=== PATIENT | female | born 1970 | race Caucasian/White ===

== ENCOUNTER 2024-08-24 07:07 | Day surgery (SDC) | payer OTHER ==
[~2024-08-24] VITALS: Ht 167.6 cm; Wt 122.5 kg
[2024-08-24] VITALS (12 sets, daily range): BP systolic 116; BP diastolic 61; PULSE 64–85; RESP 11–20; O2SAT 97–100
[~2024-08-24 07:07] MED LIST: ALBU18; ASPI81CH59 PO; ATOR10TA PO; CHOL20007 OR; DICY10CA GT; HYDR-4072 PO; HYDR12.59 PO; NAPR-957 PO; TIRZ7.5I SC; TIZA6CAP10 PO; VALS40TA2 PO; ZOFR4T PO
[2024-08-24] MEDS ORDERED: ceFAZolin 2 GM/D5W50ml 50 ML IV ONE (07:32)
[2024-08-24] MEDS ORDERED: LIDOCAINE 2% (LOCAL ANESTH.) PF 5ml SDV ONE (07:55)
[2024-08-24] MEDS ORDERED: fentaNYL CITRATE 100 MCG/2 ML VL ONE (07:55)
[2024-08-24] MEDS ORDERED: METOCLOPRAMIDE HCL 5MG/ml INJ 2ml VIAL ONE (07:55)
[2024-08-24] MEDS ORDERED: ONDANSETRON HCL 4 MG/2 ML VIAL ONE (07:55)
[2024-08-24] MEDS ORDERED: PROPOFOL 10 MG/ML 20 ML IV ONE (07:55)
[2024-08-24] MEDS ORDERED: MIDAZOLAM HCL 2MG/2ML 2ml VIAL (1mg/ml) ONE (07:55)
[2024-08-24] MEDS: BUPIVACAINE HCL 0.25% P/F 10 ML VIAL ONE (08:14)
[2024-08-24] MEDS ORDERED: ePHEDrine SULFATE 50 MG/ML AMP ONE (08:28)
[2024-08-24] MEDS ORDERED: ALBUTEROL SULFATE 90 MCG MDI IN ONE (08:43)
[2024-08-24] MEDS ORDERED: MIDAZOLAM HCL 2MG/2ML 2ml VIAL (1mg/ml) IV PRN (08:45)
[2024-08-24] MEDS ORDERED: ONDANSETRON HCL 4 MG/2 ML VIAL IV ONE (08:45)
[2024-08-24] MEDS ORDERED: HYDROmorphone HCL 2 MG/ML VL/or syr IV PRN (08:45)
[2024-08-24] MEDS: ALBUTEROL SULF 2.5 MG/0.5ML(0.5%) NEB SOLN ONE (08:56)
[2024-08-24] MEDS: IPRATROPIUM BROM 0.5 MG/2.5ML INH SOL ONE (08:56)
[2024-08-24] MEDS: EPINEPHrine HCL 0.5 ML NEB ONE (09:02)
[2024-08-24] MEDS: EPINEPHrine HCL 0.5 ML NEB NEB ONE (09:15)
[2024-08-24] MEDS: FAMOTIDINE (10MG/ML) 2ML VL IV ONE ×2 (09:39)
[2024-08-24] MEDS: KETOROLAC TROMETH 30 MG/ML 1ML VIAL IV ONE (09:57)
--- NOTE | 2024-08-24 10:33 | DVHOP2 ---
Operative Report - 2 Report Details Date: 08/24/24 Preop Diagnosis: Left carpal tunnel syndrome Postop Diagnosis: Left carpal tunnel syndrome Surgeon: Veronika Bui MD Anesthesiologist: Carlos rodriguez CRNA Anesthesia: Mac, Local Implant: None Consent: The patient was informed of the risks and benefits of the procedure. These include but are not limited to complications of anesthesia, postoperative infection, incomplete relief of symptoms, recurrence of symptoms, damage to blood vessels, nerves and tendons, deep venous thrombosis, pulmonary embolism and possible need for repeat surgery in the future. Complications: None Estimated Blood Loss: Less than 10 mL Indications for Surgery: The patient is a 53-year-old female who presented to the clinic with a history of carpal tunnel syndrome on the left side. She had history of right carpal tunnel release done and she did very well from that surgery. Nonoperative and operative management options were discussed. Surgery in the form of open release of the median nerve was discussed. Benefits, risks and treatment alternatives were discussed. Specific complications including iatrogenic median nerve injury, sensory nerve injury, complex regional pain syndrome which could exacerbate the pain, inadequate relief, need for revision surgery were discussed with her. She decided to proceed with the surgery. Name of Procedure Performed Left open carpal tunnel release Procedure Details Procedure Details: Local anesthesia was injected in the proposed site. An incision was made based on anatomical landmarks in line of third interdigital webspace. The skin and the subcutaneous tissue were dissected. The deep fascia was incised. Care was taken to stay on the ulnar side of the incision. The fat was dissected. The palmar fascia was identified and dissected. The transverse carpal ligament was now identified. No variants of median nerve branches such as the recurrent branch was noted. The dissection was completed proximally and distally to ensure safety of incising the retinaculum. A 15 blade was used to start the release. Next tenotomy scissors were used to dissect under the retinaculum. Median nerve was identified before the incision was carried out further. Next the tenotomy scissors were inserted right around the retinaculum with a [place] elevator inserted below it to release it distally as well as proximally. Excellent release was noted and confirmed with a hemostat that was inserted and spread both proximally and distally. The nerve was noted to be swollen and adherent to the radial portion of the retinaculum and was carefully released without any undue tension and dissection. Irrigation was given and the incision was closed with 3-0 nylon The patient was taken to the recovery. The patient had normal sensation in the distal fingers. The patient was able to move her fingers as tolerated. The patient was comfortable and then discharged home. Condition Good Disposition Home VERONIKA BUI MD August 24, 2024 10:33
[2024-08-24] MEDS ORDERED: ALBUTEROL SULF 2.5 MG/0.5ML(0.5%) NEB SOLN NEB ONE (10:45)
[2024-08-24] MEDS ORDERED: IPRATROPIUM BROM 0.5 MG/2.5ML INH SOL NEB ONE (10:45)
[2024-08-24] MEDS ORDERED: TRAM50TA2 PO (10:53)
== END 2024-08-24 11:11 | disposition home or self-care (01) ==
LOC: SUR 07:07
PROVIDERS: ATTEND Orthopaedic Surgery Sports Medicine
DX: G56.02 Carpal tunnel syndrome, left upper limb (principal); I10 Essential (primary) hypertension; E11.9 Type 2 diabetes mellitus without complications; J45.909 Unspecified asthma, uncomplicated; M06.9 Rheumatoid arthritis, unspecified; Z79.899 Other long term (current) drug therapy; Z98.890 Other specified postprocedural states
CPT/HCPCS: 64721; 82962; 94640; J0690; J1885; J2003; J2250; J2405; J2704; J2765; J3010; J3490